=== PATIENT | female | born 1985 | race Caucasian/White ===

== ENCOUNTER 2023-01-20 01:35 | Outpatient (CLI) | payer OTHER, SELFPAY ==
[2023-01-20 14:30] LABS: Anion Gap 5.5 mmol/L (3-11); BUN 15 mg/dL (7-18); CO2 30.5 mmol/L (21.0-32.0); Calcium 8.8 mg/dL (8.5-10.1); Calculated LDL 89 mg/dL (<100); Chloride 103 mmol/L (98-107); Cholesterol 171 mg/dL (<200); Estimated GFR 74.41 (mL/min/1.73m2); Glucose 89 mg/dL (74-106); HDL Cholesterol 56 mg/dL (40-60); Potassium 3.8 mmol/L (3.5-5.1); Sodium 139 mmol/L (136-145); TSH (W/Ref FT4) 2.07 uIU/mL (0.36-3.74); Triglyceride 130 mg/dL (<150)
== END 2023-01-20 01:36 | disposition home or self-care (01) ==
LOC: LBO 01:36
PROVIDERS: PCP Nurse Practitioner Family; Visit Provider Nurse Practitioner Family
DX: Z00.00 Encounter for general adult medical examination without abnormal findings (principal)
CPT/HCPCS: 36415; 80048; 80061; 84443